=== PATIENT | female | born 1960 | race Caucasian/White ===

== ENCOUNTER → 2017-06-07 | Outpatient (CLI) | payer OTHER ==
[~2017-06-07] VITALS: Ht 167.6 cm; Wt 73.0 kg
[~2017-06-07] MED LIST: PAXIL CR25 MG PO; VITAMIN D-32000 UNI2 PO
[2017-06-07 11:34] VITALS: BP 122/79
== END | disposition home or self-care (01) ==
LOC: IVINF 05-30 15:00
DX: M81.0 Age-related osteoporosis without current pathological fracture (principal)
CPT/HCPCS: 96365; J3489